=== PATIENT | male | born 1990 | race Caucasian/White ===

== ENCOUNTER 2021-09-19 02:32 | Emergency (ER) | payer MEDICAID ==
[~2021-09-19] VITALS: Ht 182.9 cm; Wt 103.0 kg
--- NOTE | 2021-09-19 02:34 | NUR ---
pt biba bls er bed 2
[2021-09-19 02:35] VITALS: BP 128/70
--- NOTE | 2021-09-19 02:38 | NUR ---
[facility] at bedside.
[2021-09-19] MEDS ORDERED: IBUPROFEN 600 MG TAB PO ONE (02:55)
--- NOTE | 2021-09-19 03:17 | NUR ---
[facility] INFORMED THAT PATIENT IS RELEASED
[2021-09-19] MEDS ORDERED: NAPR-54 PO (03:39)
[2021-09-19 03:54] VITALS: BP 126/78
--- NOTE | 2021-09-19 03:54 | NUR ---
Patient discharged with v/s stable. Written and verbal after care instructions given chest wall pain and explained. Patient alert, oriented and verbalized understanding of instructions. Ambulatory with steady gait. All questions addressed prior to discharge. ID band removed. Patient advised to follow up with PMD. Rx of Naproxen given.
== END 2021-09-19 03:54 | disposition home or self-care (01) ==
LOC: MED 02:32
DX: R07.89 Other chest pain (principal); Z72.89 Other problems related to lifestyle; V49.9XXA Car occupant (driver) (passenger) injured in unspecified traffic accident, initial encounter; Y93.89 Activity, other specified; Y92.89 Other specified places as the place of occurrence of the external cause; Y99.8 Other external cause status
CPT/HCPCS: 71045; 99283; Q0092